=== PATIENT | female | born 1995 | race Caucasian/White ===

== ENCOUNTER 2019-03-18 17:21 | Emergency (ER) | payer OTHER ==
[~2019-03-18] VITALS: Ht 172.7 cm; Wt 70.5 kg
[2019-03-18 17:22] VITALS: BP 138/79
[2019-03-18] MEDS ORDERED: SILVER SULF. CRM 1% , 25GM ONE (18:17)
--- NOTE | 2019-03-18 18:26 | NUR ---
TASK RN: Patient/Caregiver given discharge instructions and they have confirmed that they understand the instructions. Patient ambulatory with steady gait. PT LEFT WITH ALL PERSONAL BELONGINGS.
[2019-03-18] MEDS ORDERED: SILVER SULF. CRM 1% , 25GM TP ONE (18:30)
== END 2019-03-18 18:28 | disposition home or self-care (01) ==
LOC: ED 18:20
DX: T23.101A Burn of first degree of right hand, unspecified site, initial encounter (principal); T31.0 Burns involving less than 10% of body surface; X08.8XXA Exposure to other specified smoke, fire and flames, initial encounter; Y93.89 Activity, other specified; Y92.89 Other specified places as the place of occurrence of the external cause; Y99.8 Other external cause status
CPT/HCPCS: 16020; 82962; 99284